=== PATIENT | male | born 1990 | race Two or more races ===

== ENCOUNTER 2020-11-11 12:34 | Emergency (ER) | payer OTHER ==
[~2020-11-11] VITALS: Ht 180.3 cm; Wt 76.7 kg
[2020-11-11 12:40] VITALS: BP 148/93
--- NOTE | 2020-11-11 13:02 | NUR ---
Patient left medically cleared for booking accompanied by [employer] in no distress.
== END 2020-11-11 13:02 ==
LOC: ER 12:38
DX: R68.84 Jaw pain (principal)